=== PATIENT | male | born 1995 | race Caucasian/White ===

== ENCOUNTER 2016-05-31 19:17 | Emergency (ER) | payer MEDICAID, OTHER ==
[2016-05-31 19:25] VITALS: TEMP 97.7
--- NOTE | 2016-05-31 19:46 | CPEKG ---
Heart Rate: 93 RR Interval: 645 P-R Interval: 136 QRSD Interval: 116 QT Interval: 380 QTC Interval: 473 P [place]: 72 QRS [place]: 86 T Wave [place]: 38 EKG Severity - ABNORMAL ECG - EKG Impression: SINUS RHYTHM EKG Impression: INCOMPLETE RIGHT BUNDLE BRANCH BLOCK Electronically Signed By: Srinivas Brady 01-Jun-2016 00:16:20
[2016-05-31] MEDS ORDERED: LORazepam 2 MG/ML INJ IVP ONE ×2 (19:50)
--- NOTE | 2016-05-31 19:56 | EDPHY ---
HPI/HX/ROS/PE/MDM Narrative: CHIEF COMPLAINT: Chest pain HPI: The patient is a 20-year-old male with no significant past medical history. He reports approximately 10 days of intermittent chest pain which he describes as a brief pinching sensation lasting for less than 1 second. There is not appear to be any exacerbating or relieving factors to his pain. He does not complain of pain with inspiration. Earlier this evening the patient experienced a tingling sensation in his left arm. No recent illness. No trauma. He denies cocaine use. REVIEW OF SYSTEMS: Aside from elements discussed in the HPI, a comprehensive 10-point review of systems was reviewed and is negative. PMH: None significant. Family history: Paternal uncle recently underwent surgery for what sounds like a thoracic aortic dissection. The patient states that he believes it is hereditary, but he is unaware of any specific syndrome or connective tissue disorder. SOCIAL HISTORY: Works at a [employer]. Denies alcohol or drug abuse. PHYSICAL EXAM: General:Patient is alert, in no acute distress. ENT:Eyes are normal to inspection. ENT inspection normal. Neck: Normal inspection. Full range of motion. Respiratory:No respiratory distress. Breath sounds normal bilaterally. Cardiovascular: Regular rate and rhythm. Strong peripheral pulses. Normal cap refill. Abdomen:The abdomen is nontender to palpation. There are no peritoneal signs. There are normal bowel sounds. Back: Normal to inspection. No tenderness to palpation. Skin: Normal color. No rash. Warm and dry. Extremities: Normal appearance. Full range of motion. Neuro: Oriented x3. Normal motor function. Normal sensory function. ED Course: EKG was ordered and interpreted by myself. Please see [facility] system for official reading. CT angio of the chest was performed and read by Dr. Rashid as negative for pulmonary embolus, thoracic aortic dissection or other abnormality. MDM: This is a young healthy male who presents with atypical chest pain. His troponin and EKG are not indicative of acute coronary syndrome. Given his family history of aortic dissection, performed a CT angiogram of the chest to rule out this possibility and thankfully this is negative. On re-evaluation, the patient is comfortable and chest pain-free. Given his young age, lack of risk factors and negative workup, I think he is safe for outpatient workup and further management. He agrees with this plan. We discussed strict return precautions. - Data Points Laboratory Results: Laboratory Results 05/31/16 20:05 05/31/16 20:05 05/31/16 20:05 WBC 14.59 H 10^3/uL (3.80-9.50) RBC 5.38 10^6/uL (4.40-6.38) Hgb 16.8 g/dL (13.7-17.5) Hct 47.1 % (40.0-51.0) MCV 87.5 fL (81.5-99.8) MCH 31.2 pg (27.9-34.1) MCHC 35.7 g/dL (32.4-36.7) RDW 12.3 % (11.5-15.2) Plt Count 243 10^3/uL (150-400) MPV 9.5 fL (8.7-11.7) Neut % (Auto) 74.3 H % (39.3-74.2) Lymph % (Auto) 18.1 % (15.0-45.0) Phelps % (Auto) 6.4 % (4.5-13.0) Eos % (Auto) 0.6 % (0.6-7.6) Baso % (Auto) 0.3 % (0.3-1.7) Nucleat RBC Rel Count 0.0 % (0.0-0.2) Absolute Neuts (auto) 10.83 H 10^3/uL (1.70-6.50) Absolute Lymphs (auto) 2.64 10^3/uL (1.00-3.00) Absolute Monos (auto) 0.93 H 10^3/uL (0.30-0.80) Absolute Eos (auto) 0.09 10^3/uL (0.03-0.40) Absolute Basos (auto) 0.05 10^3/uL (0.02-0.10) Absolute Nucleated RBC 0.00 10^3/uL (0-0.01) Immature Gran % 0.3 % (0.0-1.1) Immature Gran # 0.05 10^3/uL (0.00-0.10) Sodium 140 mEq/L (134-144) Potassium 4.3 mEq/L (3.5-5.2) Chloride 104 mEq/L (97-110) Carbon Dioxide 24 mEq/l (22-31) Anion Gap 12 mEq/L (8-16) BUN 22 mg/dL (7-23) Creatinine 0.9 mg/dL (0.7-1.3) Estimated GFR > 60 Glucose 127 H mg/dL (70-100) Calcium 9.6 mg/dL (8.5-10.4) Troponin I < 0.012 ng/mL (0-0.034) Medications Given: Discontinued Medications Lorazepam (Ativan Injection) 1 mg IVP EDNOW ONE Stop: 05/31/16 19:51 Last Admin: 05/31/16 20:14 Dose: 1 mg Lorazepam (Ativan Injection) 1 mg IVP EDNOW ONE Stop: 05/31/16 19:51 Last Admin: 05/31/16 19:51 Dose: Not Given General Time Seen by Provider: 05/31/16 19:38 Initial Vital Signs: Initial Vital Signs Temperature (C) 36.5 C 05/31/16 19:21 Heart Rate 85 05/31/16 19:21 Respiratory Rate 16 05/31/16 19:21 Blood Pressure 155/89 H 05/31/16 19:21 O2 Sat (%) 98 05/31/16 19:21 O2 Delivery Mode Room Air Allergies/Adverse Reactions: No Known Allergies Allergy (Verified 05/31/16 19:25) Home Medications: Medication Instructions Recorded No Medications [NO HOME 0 [facility] 01/04/11 MEDICATIONS] Departure - Departure Disposition: Home, Routine, Self-Care Clinical Impression: Chest pain Qualifiers: Chest pain type: unspecified Qualifier Code: (R07.9) Chest pain, unspecified Condition: Good Instructions: Chest Pain (ED) Additional Instructions: Follow-up with your primary doctor within 72 hours. Return to the Emergency Department for fever, chest pain, shortness of breath, increasing pain or other worsening of condition.
--- NOTE | 2016-05-31 20:08 | DX ---
Chest, PA and lateral. HISTORY: Chest pain FINDINGS: Heart size is within normal limits. Pulmonary vascularity appears normal. The lungs are [place]. No evidence for pleural effusion or pneumothorax. No significant osseous abnormality. IMPRESSION: Normal chest x-ray.
[2016-05-31 20:14] LABS: % IMMATURE GRANULYOCYTES 0.3 % (0.0-1.1); ABSOLUTE IMMATURE GRANULOCYTES 0.05 10^3/uL (0.00-0.10); ADD DIFF? NO; ADD MORPH? NO; ADD SCAN? NO; ATYPICAL LYMPHOCYTE FLAG 0 (0-99); FRAGMENT RBC FLAG 0 (0-99); HEMATOCRIT 47.1 % (40.0-51.0); HEMOGLOBIN 16.8 g/dL (13.7-17.5); LEFT SHIFT FLG 0 (0-99); LIPEMIA HEMOLYSIS FLAG 90 (0-99); MEAN CELL HEMOGLOBIN 31.2 pg (27.9-34.1); MEAN CELL HEMOGLOBIN CONCENTR. 35.7 g/dL (32.4-36.7); MEAN CELL VOLUME 87.5 fL (81.5-99.8); MEAN PLATELET VOLUME 9.5 fL (8.7-11.7); PLATELET CLUMPS FLAG 20 (0-99); PLATELET COUNT 243 10^3/uL (150-400); RED BLOOD CELL COUNT 5.38 10^6/uL (4.40-6.38); RED CELL DISTRIBUTION WIDTH 12.3 % (11.5-15.2)
[2016-05-31 20:16] VITALS: RESP 14
[2016-05-31 20:29] LABS: ANION GAP 12 mEq/L (8-16); CALCIUM 9.6 mg/dL (8.5-10.4); CARBON DIOXIDE 24 mEq/l (22-31); CHLORIDE 104 mEq/L (97-110); CREATININE 0.9 mg/dL (0.7-1.3); GLOMERULAR FILTRATION RATE > 60; GLUCOSE 127 mg/dL (70-100); POTASSIUM 4.3 mEq/L (3.5-5.2); SODIUM 140 mEq/L (134-144)
[2016-05-31 20:41] LABS: TROPONIN I < 0.012 ng/mL (0-0.034)
[2016-05-31] MEDS ORDERED: IOPAMIDOL (ISOVUE 370) 100 ML BTL IV ONE (20:51)
--- NOTE | 2016-05-31 21:35 | CT ---
CT Chest Angiogram Comparison: Chest x-ray performed today. Indication: Chest pain. Family history of aortic dissection. Technique: Thinly collimated multidetector helical CT imaging was performed through the chest while 90 mL of [id number]-[id number] were injected intravenously without complication. The images were then transferr ed to an independent workstation where multiplanar reconstructions were performed. Dose reduction isabel hniques were utilized. Findings: CT Chest Angiogram: The pulmonary arterial system is well opacified. No intraluminal filling defect s to suggest acute or chronic thrombopulmonary embolic disease. The thoracic aorta is normal caliber . No aneurysm or dissection. CT Chest: The lungs are clear. No pulmonary nodule, mass, or enlarged lymph nodes. Heart size is nor mal. No pericardial or pleural effusion. The imaged portion of the upper abdomen is negative. Impression: 1. No evidence of thrombopulmonary embolic disease. 2. No evidence for aortic dissection. Results called to Dr. Srinivas Brady. .
[2016-05-31 21:44] VITALS: BP 144/84; PULSE 86; O2SAT 96
== END 2016-05-31 22:06 | disposition home or self-care (01) ==
DX: R07.9 Chest pain, unspecified (principal)
CPT/HCPCS: 96374; Q9967